=== PATIENT | female | born 1995 | race African-American/Black ===

== ENCOUNTER 2017-02-21 00:47 | Inpatient (IN) | payer OTHER ==
[2017-02-21] MEDS ORDERED: DINOPROSTONE 10 MG VAGINAL INSERT.SR PV ONE (01:00)
[2017-02-21] MEDS ORDERED: ZOLPIDEM TARTRATE 5 MG TABLET PO PRN ×2 (01:00→15:43)
[2017-02-21] MEDS ORDERED: RINGERS SOLUTION,LACTATED 300 ML IV ONE (01:00)
[2017-02-21] MEDS ORDERED: ACETAMINOPHEN 325 MG TABLET PO PRN (01:00)
[2017-02-21] MEDS ORDERED: MAG HYDROX/AL HYDROX/SIMETH SUSP 30 ML UDCUP PO PRN (01:00)
[2017-02-21] MEDS ORDERED: OXYTOCIN/NORMAL SALINE 20 UNIT/1,000 ML RTUINJ IV PRN ×2 (01:00→15:43)
[2017-02-21] MEDS ORDERED: RINGERS SOLUTION,LACTATED 1,000 ML IV PRN (01:00)
[2017-02-21 01:44] LABS: ABSOLUTE EOSINOPHILS # (AUTO) 0.1 10^3/uL (0.0-0.6); ABSOLUTE LYMPHOCYTES (AUTO) 2.9 10^3/uL (0.5-4.7); ABSOLUTE NEUT (AUTO) 4.3 10^3/uL (1.7-8.2); BASOPHILS % (AUTO) 0.4 % (0-2); EOSINOPHILS % (AUTO) 1.1 % (0-6); HEMOGLOBIN 11.6 g/dL (12.0-15.5); HGB HCT DIFFERENCE 1.8; MEAN CORPUSCULAR HGB CONC 35.1 g/dL (32.0-36.0); MEAN CORPUSCULAR VOLUME 97 fl (80-97); MONOCYTES % (AUTO) 11.9 % (3-13); RED BLOOD COUNT 3.41 10^6/uL (3.72-5.28); RED CELL DISTRIBUTION WIDTH 12.5 % (11.5-14.0); SEGMENTED NEUTROPHILS % (AUTO) 51.6 % (42-78); WHITE BLOOD COUNT 8.4 10^3/uL (4.0-10.5)
[2017-02-21] MEDS ORDERED: DINOPROSTONE 10 MG VAGINAL INSERT.SR ONE (01:57)
[2017-02-21 02:09] LABS: URINE BARBITURATES SCREEN NEGATIVE; URINE METHADONE SCREEN NEGATIVE; URINE OPIATES LOW NEGATIVE; URINE PHENCYCLIDINE SCREEN NEGATIVE
[2017-02-21 03:52] LABS: APPEARANCE,URINE CLOUDY; BILIRUBIN,URINE NEGATIVE (NEGATIVE); GLUCOSE, URINE NEGATIVE (NEGATIVE); KETONES,URINE NEGATIVE (NEGATIVE); LEUKOCYTE ESTERASE,URINE LARGE (NEGATIVE); NITRITE,URINE NEGATIVE (NEGATIVE); PROTEIN,URINE NEGATIVE (NEGATIVE); URINE SPECIFIC GRAVITY 1.004; UROBILINOGEN,URINE NEGATIVE mg/dL (<2.0)
--- NOTE | 2017-02-21 08:41 | L&D Progress Notes ---
PROGRESS NOTES Datetime Report Generated by CPN: 02/21/2017 08:41 PROGRESS NOTE Plan: Continue Present Management; Cervical Ripening Informed Consent Obtained: Vaginal Delivery Vital Signs : Reviewed; Within Normal Limits Comment: Cat 1 strip, regular contractions, continue cervidil, Dr. Caballero here and aware of status, if cervical change, pull cervidil and Dr. Caballero plans a luciano bulb VAGINAL EXAM Dilatation: 1 Effacement: 0 Station: -1 MEMBRANES Pooling: Negative Membranes: Intact FETUS A FHR - Baseline: 140 Monitoring: External US Variability: Moderate 6-25bpm Accelerations: 15X15 Decelerations: None : 41.2 : 41.2 Estimated Weight (gm): 3900 Presentation: Vertex SIGNATURE SIGNATURE: [id number] Assignment: Libertad Caballero MD Signature: with User ID: [email or web address] : with User ID: [email or web address]
[2017-02-21] MEDS ORDERED: PENICILLIN G-K 5 MILLION UNIT VIAL ONE ×2 (09:42→14:01)
[2017-02-21] MEDS ORDERED: OXYTOCIN/NORMAL SALINE 20 UNIT/1,000 ML RTUINJ ONE (10:04)
[2017-02-21] MEDS ORDERED: NALBUPHINE HCL INJ 10 MG/1 ML AMPULE ONE (10:15)
--- NOTE | 2017-02-21 11:18 | L&D Progress Notes ---
PROGRESS NOTES Datetime Report Generated by CPN: 02/21/2017 11:17 PROGRESS NOTE Procedures: Artificial ROM; Sterile Vag Exam Plan: Continue Present Management; Induction Informed Consent Obtained: Vaginal Delivery; Risks, Benefits and Alternatives Discussed Vital Signs : Reviewed; Within Normal Limits Comment: Pt here for IOL due to Post DANIEL. Cervidil started last evening at 0200 and removed this am. Cvx 1cm at the time of removal of Cervidil. Now went in to place Cooks catheter but cvx now 4-5//-1. AROM performed with meconium noted. Nursery notified. Anticipate . Reassuring FWB. PCN already started for GBS pos. pt now desires epidural. will notify anesthesia. VAGINAL EXAM Dilatation: 4 Effacement: 90 Station: -1 MEMBRANES Membranes: Ruptured Amniotic Fluid Color: Meconium, Light FETUS A FHR - Baseline: 130 Monitoring: External US Variability: Moderate 6-25bpm Decelerations: None FETUS C SIGNATURE: [id number] Signature: with User ID: [email or web address]
[2017-02-21] MEDS ORDERED: FENTANYL CITRATE INJ/PF 100 MCG/2 ML AMPUL ONE (11:52)
[2017-02-21] MEDS ORDERED: PHENYLEPHRINE HCL INJ/PF 10 MG/1 ML SDV ONE (11:53)
[2017-02-21] MEDS ORDERED: EPHEDRINE SULFATE INJ 50 MG/1 ML AMPULE ONE (11:53)
[2017-02-21] MEDS ORDERED: BUPIVACAINE HCL 0.25 % INJ/PF (2.5 MG/1 ML) 30 ML VIAL ONE (11:53)
[2017-02-21] MEDS ORDERED: FENTANYL/BUPIVACAINE/NS/PF 200 MCG/100 ML RTUINJ EPI ONE (11:53)
[2017-02-21] MEDS ORDERED: MISOPROSTOL 0.2 MG TABLET ONE (11:54)
--- NOTE | 2017-02-21 14:09 | L&D Progress Notes ---
PROGRESS NOTES Datetime Report Generated by CPN: 02/21/2017 14:09 PROGRESS NOTE Comment: VE 9.5 cm, c/o of increase pressure,, HR 120, moderate variability, + accels, uc's q 2 min anticipate FETUS C SIGNATURE: [id number] Assignment: Libertad Caballero MD Signature: with User ID: [email or web address] : with User ID: [email or web address]
[2017-02-21] MEDS ORDERED: MISOPROSTOL 0.2 MG TABLET PR PRN (15:43)
[2017-02-21] MEDS ORDERED: MEASLES,MUMPS&RUBELLA VACC/PF 0.5 ML VIAL SUBCUT PRN (15:43)
[2017-02-21] MEDS ORDERED: DIPH/PERTUSS(ACELL)/TETANUS VAC/PF 0.5 ML SYR (>=10YO) IM PRN (15:43)
[2017-02-21] MEDS ORDERED: DIBUCAINE 1% OINTMENT 28 GM TP PRN (15:43)
[2017-02-21] MEDS ORDERED: ACETAMINOPHEN WITH CODEINE #3 TABLET PO PRN ×2 (15:43)
[2017-02-21] MEDS ORDERED: BENZOCAINE/MENTHOL AEROSOL SPRAY 56 ML TOP PRN (15:43)
--- NOTE | 2017-02-21 16:27 | Delivery Summary ---
Del Sum A-C Datetime Report Generated by CPN: 02/21/2017 16:27 DELIVERY PERSONNEL DELIVERY PERSONNEL: [id number] Delivery Doctor:: Amberly Keenan CNM Nurse Safety Associate Certified:: Amberly Keenan CNM Labor and Delivery Nurse:: DONNA Acuna Labor and Delivery Nurse:: DONNA Johnson Wellness Consultant/ONLINE MEDIA DIRECTOR: Jo Ann SINGLETON Wellness Consultant/BESSIE: Alcira Wells CNA II Additional Personnel: : Crystal Mendez RN MATERNAL INFORMATION Delivery Anesthesia: Epidural Medications After Delivery: Pitocin Bolus-Please Comment; Pitocin Drip 20 Units/1000ml NSS; Cytotec 600mcg Per Rectum/Vagina Estimated Blood Loss (ml): 300 Maternal Complications: None Provider Comments: viable male from OA to LALA over ML and large gush of meconium staining, placed on mothers abd, suctioned, 8/9, spont delivery of meconium stained placenta, 3 VC, EBL = 300 cc, Epis repaired with 2-0 chromic without difficulty, IV Pitocin, massage, cytotec 600 mcg via rectum, mod flow with clots with massage family at , baby and mom remains in recovery in stable condition, monitor bleeding closely LABOR SUMMARY EDC: 02/12/2017 00:00 No. Babies in Womb: 1 Attempted: No Labor Anesthesia: Epidural LABOR INFORMATION Reason for Induction: Postterm Onset of Labor: 02/21/2017 11:07 Complete Dilatation: 02/21/2017 14:20 Cervical Ripening Agents: Cervidil Oxytocin: Induction Group B Beta Strep: positive Antibiotics # of Doses: 2 Antibiotics Time of Last Dose: 1401 Name of Antibiotic Given: PCN Steroids Given: None Reason Steroids Not Administered: Not Applicable MEMBRANES Membranes Rupture Method: Artificial Rupture of Membranes: 02/21/2017 11:07 Length of Rupture (hr): 3.55 Amniotic Fluid Color: Light Meconium Amniotic Fluid Amount: Moderate STAGES OF LABOR Stage 1 hr: 3 Stage 1 min: 13 Stage 2 hr: 0 Stage 2 min: 20 Stage 3 hr: -23 Stage 3 min: -54 Total Time in Labor hr: -20 Total Time in Labor min: -21 VAGINAL DELIVERY Episiotomy: Median Laceration Type: None; Periurethral Laceration Repair: Yes Laceration Repair Note: ML epis repaired with 2-0 chromic without difficulty using epidural for repair Sponge Count Correct: N/A Sharps Count Correct: N/A CSECTION DELIVERY Primary Indication: N/A Secondary Indication: N/A CSection Incidence: N/A Labor: N/A Elective: N/A CSection Incision: N/A BABY A INFORMATION Infant Delivery Date/Time: 02/21/2017 14:40 Method of Delivery: Vaginal Born in Route : No : N/A Forceps: N/A Vacuum Extraction: N/A Shoulder Dystocia : No PRESENTATION/POSITION BABY A Presentation: Cephalic Cephalic Presentation: Vertex Vertex Position: Right Occipital Anterior Breech Presentation: N/A PLACENTA INFORMATION BABY A Placenta Delivery Time : 02/20/2017 14:46 Placenta Method of Delivery: Spontaneous Placenta Status: Delivered SCORES BABY A Heart Rate 1 min: >100 bpm Resp Effort 1 min: Good Cry Reflex Irritability 1 min: Cough or Sneeze or Pulls Away Muscle Tone 1 min: Active Motion Color 1 min: Blue/Pale Resuscitation Effort 1 min: Tactile Stimulation SCORE 1 MIN: 8 Heart Rate 5 min: >100 bpm Resp Effort 5 min: Good Cry Reflex Irritability 5 min: Cough or Sneeze or Pulls Away Muscle Tone 5 min: Active Motion Color 5 min: Body Mehan, Extremities Blue Resuscitation Effort 5 min: N/A SCORE 5 MIN: 9 Resuscitation Effort 10 min: N/A INFORMATION BABY A Gestational Age at Delivery: 41.2 Gestational Status: Late Term- 41- 41.6 Weeks Infant Outcome : Liveborn Infant Condition : Stable Infant Sex: Male IDENTIFICATION BABY A Infant Verification Date/Time: 02/21/2017 15:00 ID Band Number: [id number] Mother's Name Verified: Yes Infant RN Verifying Infant: John Mendez RN S. [place] RNC WEIGHT/LENGTH BABY A Birthweight (gm): 3510 Infant Weight (lb): 7 Infant Weight (oz): 12 Length (in): 20.50 Infant Length (cm): 52.07 CORD INFORMATION BABY A No. Cord Vessels: 3 Nuchal Cord : N/A Cord Blood Taken: Yes-For Eval (Mom's Blood Type - or O+) Suction: Mouth; Nose ASSESSMENT BABY A Complications: Meconium Physical Findings at Delivery: Caput Succedaneum Respirations: Appears Normal Skin to Skin: Yes Soakers Supervisor/ALS Called : No Care By: Gloria Mendez RN Transferred To: Remains with Mother BABY B INFORMATION : N/A
--- NOTE | 2017-02-21 16:43 | Admission Physical ---
Datetime Report Generated by CPN: 02/21/2017 16:43 CURRENT ADMISSION Chief Complaint: Uterine Contractions; Scheduled Induction of Labor Indication for Induction: Post Dates Indication for Induction: Term, Intrauterine ; Induction of Labor Admit Plan: Admit to Unit; Initiate Labor Induction Protocol ALLERGIES Medication Allergies: No Medication Allergies: No Known Allergies (02/21/2017) Latex: No Latex Allergies OBSTETRICAL HISTORY EDC: 02/12/2017 00:00 : 1 Para: 0 Term: 0 : 0 SAB: 0 IAB: 0 Ectopic: 0 Livin Cesareans: 0 VBACs: 0 Multiple Births: 0 Gestational Diabetes: No Rh Sensitization: No Incompetent Cervix: No NARESH: No Infertility: No ART Treatment: No Uterine Anomaly: No IUGR: No Hx Previous C/S: No Macrosomia: No Hx Loss/Stillborn: No PIH: No Hx : No Placenta Previa/Abruption: No Depression/PP Depression: No PTL/PROM: No Post Hemorrhage: No Current Procedures: Ultrasound; NST Obstetrical History Comments: G1- current SEE RECORDS Alcohol: No Marijuana : No Cocaine: No Other Illicit Drugs: No Cigarettes: Never Smoker. 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 Surgery: No Heart Disease: No Hosp/Surgery: No Autoimmune Disorder: No Anesthetic Complications: No Kidney Disease: No Abnormal Pap Smear: No Neuro/Epilepsy: No Psychiatric Disorders: No Other Medical Diseases: No Hepatitis/Liver Disease: No Significant Family History: No Varicosities/Phlebitis: No Trauma/Violence : No Thyroid Dysfunction: No INFECTIOUS HISTORY Gonorrhea: No Genital Herpes: No Chlamydia: No Tuberculosis: No Syphilis: No Hepatitis: No HIV/AIDS Exposure: No Rash or Viral Illness: No HPV: No PHYSICAL EXAM General: Normal HEENT: Normal Neurologic: Normal Thyroid: Normal Heart: Normal Lungs: Normal Breast: Normal Back: Normal Abdomen: Normal Genitourinary Exam: Normal Extremities: Normal DTRs: Normal Pelvic Type: Adequate Vital Signs: Reviewed VAGINAL EXAM Dilatation: 4 Dilatation: 1 Effacement: 90 Effacement: 0 Station: -1 Station: -1 MEMBRANES Pooling: Negative Membranes: Ruptured Membranes: Intact Amniotic Fluid Color: Meconium, Light FETUS A EGA: 41.2 Monitoring: External US FHR- Baseline: 140 Variability: Moderate 6-25bpm Accelerations: 15X15 Decelerations: None FHR Category: Category I Estimated Weight (gm): 3900 Presentation: Vertex PLANS FOR LABOR AND DELIVERY Labor and Delivery: None Pain Management: Epidural Feeding Preference: Both Circumcision: Yes INFORMED CONSENT Informed Consent Obtained: Vaginal Delivery; Risks, Benefits and Alternatives Discussed Informed Consent Obtained: Vaginal Delivery Signature: with User ID: [email or web address]
[2017-02-21 16:48] LABS: ABSOLUTE LYMPHOCYTES (AUTO) 1.3 10^3/uL (0.5-4.7); ABSOLUTE MONOCYTES (AUTO) 1.2 10^3/uL (0.1-1.4); ABSOLUTE NEUT (AUTO) 12.6 10^3/uL (1.7-8.2); BASOPHILS % (AUTO) 0.2 % (0-2); HEMATOCRIT 32.1 % (36.0-47.0); HEMOGLOBIN 11.3 g/dL (12.0-15.5); HGB HCT DIFFERENCE 1.8; LYMPHOCYTES % (AUTO) 8.5 % (13-45); MEAN CORPUSCULAR HEMOGLOBIN 33.9 pg (27.0-33.4); MEAN CORPUSCULAR HGB CONC 35.2 g/dL (32.0-36.0); MEAN CORPUSCULAR VOLUME 97 fl (80-97); MONOCYTES % (AUTO) 7.9 % (3-13); RED BLOOD COUNT 3.33 10^6/uL (3.72-5.28); RED CELL DISTRIBUTION WIDTH 12.7 % (11.5-14.0); SEGMENTED NEUTROPHILS % (AUTO) 83.4 % (42-78); WHITE BLOOD COUNT 15.1 10^3/uL (4.0-10.5)
[2017-02-21 17:07] LABS: ALANINE AMINOTRANSFERASE 22 U/L (9-52); ALBUMIN 3.2 g/dL (3.5-5.0); ALKALINE PHOSPHATASE 131 U/L (38-126); ANION GAP 12 (5-19); ASPARTATE AMINO TRANSFERASE 26 U/L (14-36); BILIRUBIN,DIRECT 0.4 mg/dL (0.0-0.4); BILIRUBIN,TOTAL 0.6 mg/dL (0.2-1.3); BLOOD UREA NITROGEN 5 mg/dL (7-20); CALCIUM 9.1 mg/dL (8.4-10.2); CARBON DIOXIDE 18 mmol/L (22-30); CHLORIDE 111 mmol/L (98-107); CREATININE RESULT 0.54 mg/dL (0.52-1.25); GLUCOSE 72 mg/dL (75-110); LDH 564 U/L (313-618); POTASSIUM 3.9 mmol/L (3.6-5.0); SODIUM 141.1 mmol/L (137-145); TOTAL PROTEIN 5.6 g/dL (6.3-8.2); URIC ACID 4.5 mg/dL (2.5-6.2)
[2017-02-21] MEDS: FERROUS SULFATE 325 MG TABLET PO SCH (17:14)
[2017-02-21] MEDS: DOCUSATE SODIUM 100 MG CAPSULE PO SCH (17:14)
[2017-02-21] MEDS: IBUPROFEN 800 MG TABLET PO SCH (21:26)
[2017-02-22] MEDS: IBUPROFEN 800 MG TABLET PO SCH ×3 (05:17→21:16)
[2017-02-22 07:15] LABS: HEMATOCRIT 29.1 % (36.0-47.0); HEMOGLOBIN 10.1 g/dL (12.0-15.5); HGB HCT DIFFERENCE 1.2; MEAN CORPUSCULAR HEMOGLOBIN 33.4 pg (27.0-33.4); MEAN CORPUSCULAR HGB CONC 34.8 g/dL (32.0-36.0); MEAN CORPUSCULAR VOLUME 96 fl (80-97); RED BLOOD COUNT 3.04 10^6/uL (3.72-5.28); RED CELL DISTRIBUTION WIDTH 12.6 % (11.5-14.0)
--- NOTE | 2017-02-22 07:32 | PDOC PROGRESS REPORT ---
Subjective-OB Subjective: Post Delivery Day: 22 year old. Denies any needs at this time Doing well, tired, hsb at BS, baby in NICU, eating well, voiding Physical Exam (OB) Vital Signs: Temp Pulse Resp BP Pulse Ox 98.1 F 64 14 125/71 99 02/22/17 05:13 02/22/17 05:13 02/22/17 05:13 02/22/17 05:13 02/22/17 05:13 Intake & Output 02/21/17 02/22/17 02/23/17 06:59 06:59 06:59 Weight 71.2 kg - Lochia Lochia Amount: Scant < 10 ml Lochia Color: Rubra/Red - Abdomen Description: Soft Hernia Present: No Fundal Description: Firm, Midline Fundal Height: u/u - u/2 Objective-Diagnostic Laboratory: 02/22/17 06:57 02/21/17 16:10 02/21/17 02/21/17 02/22/17 16:10 16:10 06:57 WBC 15.1 H 14.0 H RBC 3.33 L 3.04 L Hgb 11.3 L 10.1 L Hct 32.1 L 29.1 L MCV 97 96 MCH 33.9 H 33.4 MCHC 35.2 34.8 RDW 12.7 12.6 Plt Count 146 L 127 L Seg Neutrophils % 83.4 H Lymphocytes % 8.5 L Monocytes % 7.9 Eosinophils % 0.0 Basophils % 0.2 Absolute Neutrophils 12.6 H Absolute Lymphocytes 1.3 Absolute Monocytes 1.2 Absolute Eosinophils 0.0 Absolute Basophils 0.0 Sodium 141.1 Potassium 3.9 Chloride 111 H Carbon Dioxide 18 L Anion Gap 12 BUN 5 L Creatinine 0.54 Est GFR ( Amer) > 60 Est GFR (Non-Af Amer) > 60 Glucose 72 L Uric Acid 4.5 Calcium 9.1 Total Bilirubin 0.6 AST 26 ALT 22 Alkaline Phosphatase 131 H Total Protein 5.6 L Albumin 3.2 L Assessment and Plan(PN) - Assessment and Plan (1) Anemia Qualifiers: Anemia type: iron deficiency Is this a current diagnosis for this admission?: Yes (2) GBS (group B Streptococcus carrier), +RV culture, currently Is this a current diagnosis for this admission?: Yes (3) Thick meconium stained amniotic fluid Is this a current diagnosis for this admission?: Yes (4) Delivery normal Is this a current diagnosis for this admission?: Yes - Time Spent with Patient Time with patient: Less than 15 minutes Medications reviewed and adjusted accordingly: Yes - Disposition Anticipated Discharge: Home Within: within 24 hours
[2017-02-22] MEDS: PRENATAL VITAMIN W-O CA NO5/FE FUMARATE/FA CAPSULE PO SCH (10:25)
[2017-02-22] MEDS: DOCUSATE SODIUM 100 MG CAPSULE PO SCH ×2 (10:25→17:33)
[2017-02-22] MEDS: FERROUS SULFATE 325 MG TABLET PO SCH ×2 (10:25→17:33)
[2017-02-22] MEDS: SENNOSIDES/DOCUSATE 8.6-50 MG 1 EACH TABLET PO SCH (10:25)
[2017-02-23] MEDS: IBUPROFEN 800 MG TABLET PO SCH ×2 (05:13→14:12)
[2017-02-23 08:32] VITALS: BP 123/68
[2017-02-23] MEDS: SENNOSIDES/DOCUSATE 8.6-50 MG 1 EACH TABLET PO SCH (11:01)
[2017-02-23] MEDS: DOCUSATE SODIUM 100 MG CAPSULE PO SCH (11:01)
[2017-02-23] MEDS: FERROUS SULFATE 325 MG TABLET PO SCH (11:02)
[2017-02-23] MEDS: PRENATAL VITAMIN W-O CA NO5/FE FUMARATE/FA CAPSULE PO SCH (11:02)
--- NOTE | 2017-02-23 11:10 | PDOC PROGRESS REPORT ---
Subjective-OB Subjective: Post Delivery Day: 22 year old. Denies any needs at this time Doing well, no c/o, ready to go home, , hsb at BS Physical Exam (OB) Vital Signs: Temp Pulse Resp BP Pulse Ox 98.5 F 72 16 123/68 96 02/23/17 09:43 02/23/17 09:43 02/23/17 09:43 02/23/17 08:09 02/23/17 09:43 - PIH/Pre-Eclampsia Headache: Absent Epigastric Pain: No Visual Changes: No - Lochia Lochia Amount: Scant < 10 ml Lochia Color: Rubra/Red - Abdomen Description: Soft Hernia Present: No Fundal Description: Firm, Midline Fundal Height: u/u - u/2 Objective-Diagnostic Laboratory: 02/22/17 06:57 02/21/17 16:10 Assessment and Plan(PN) - Assessment and Plan (1) Anemia Qualifiers: Anemia type: iron deficiency Is this a current diagnosis for this admission?: Yes (2) GBS (group B Streptococcus carrier), +RV culture, currently Is this a current diagnosis for this admission?: Yes (3) Thick meconium stained amniotic fluid Is this a current diagnosis for this admission?: Yes (4) Delivery normal Is this a current diagnosis for this admission?: Yes - Time Spent with Patient Time with patient: Less than 15 minutes Medications reviewed and adjusted accordingly: Yes - Disposition Anticipated Discharge: Home Within: Other - home today
--- NOTE | 2017-02-23 11:16 | PDOC DISCHARGE SUMMARY ---
Final Diagnosis Discharge Date: 02/23/17 - Final Diagnosis (1) Anemia Is this a current diagnosis for this admission?: Yes (2) GBS (group B Streptococcus carrier), +RV culture, currently Is this a current diagnosis for this admission?: Yes (3) Thick meconium stained amniotic fluid Is this a current diagnosis for this admission?: Yes (4) Delivery normal Is this a current diagnosis for this admission?: Yes Discharge Data - Discharge Medication Home Medications: Vit 10/Iron Fum/Folic [Vitafol-Ob Caplet] 1 each PO DAILY 02/21/17 Gestational Age: 41.2 Reason(s) for Admission: Induction of Labor, Group B Strep Positive Procedures: NST, Ultrasound Intrapartum Procedure(s): Spontaneous Vaginal Delivery Complication(s): Laceration-Periurethral Laceration-Degree: 1st - Herman Data Baby 1 Male at 1 minute: 8 at 5 minutes: 9 Weight: 3.515 kg Home with Mother: Yes Complications: No - Diagnosis Test Laboratory: Temp Pulse Resp BP Pulse Ox 98.5 F 72 16 123/68 96 02/23/17 09:43 02/23/17 09:43 02/23/17 09:43 02/23/17 08:09 02/23/17 09:43 02/21/17 02/21/17 02/21/17 01:05 01:27 16:10 RBC 3.41 L 3.33 L Hgb 11.6 L 11.3 L Hct 33.0 L 32.1 L Urine Opiates Screen NEGATIVE 02/22/17 06:57 RBC 3.04 L Hgb 10.1 L Hct 29.1 L Urine Opiates Screen - Discharge information/Instructions Discharge Activity: Activity As Tolerated, No Lifting Over 10 Pounds, No Lifting /Push/Pulling, Pelvic Rest Discharge Diet: As Tolerated, Regular Disposition: HOME, SELF-CARE Follow up with: [facility] in: 4, Weeks
[2017-02-23] MEDS ORDERED: INFLUENZA ADLT QUAD (36MOS+) 2017-18 VAC 0.5 ML SYR IM PRN (14:41)
== END 2017-02-23 16:32 | disposition home or self-care (01) | DRG 775 ==
LOC: LR 00:47 → 2N 16:41
PROVIDERS: ADMIT Obstetrics & Gynecology; ATTEND Obstetrics & Gynecology
PROC: 10E0XZZ Delivery of Products of Conception, External Approach (ICD-10-PCS; principal; 2017-02-21)
PROC: 0W8NXZZ Division of Female Perineum, External Approach (ICD-10-PCS; 2017-02-21)
PROC: 0UQMXZZ Repair Vulva, External Approach (ICD-10-PCS; 2017-02-21)
PROC: 3E0234Z Introduction of Serum, Toxoid and Vaccine into Muscle, Percutaneous Approach (ICD-10-PCS; 2017-02-23)
DX: O48.0 Post-term pregnancy (principal); Z3A.41 41 weeks gestation of pregnancy; O77.0 Labor and delivery complicated by meconium in amniotic fluid; O99.824 Streptococcus B carrier state complicating childbirth; O71.82 Other specified trauma to perineum and vulva; Z37.0 Single live birth; O90.81 Anemia of the puerperium; D50.9 Iron deficiency anemia, unspecified; Z23 Encounter for immunization
CPT/HCPCS: 36415; 80053; 80307; 81005; 83615; 84550; 85025; 85027; 86592; 86850; 86900; 86901; 88307; 90686; 94760; J2300; J2370; J2540; J2590; J3010; J3490